=== PATIENT | male | born 1955 | race African-American/Black ===

== ENCOUNTER 2017-07-12 11:15 | Day surgery (SDC) | payer OTHER ==
[2017-07-06 09:18] VITALS: BMI 30.6
[2017-07-12] MEDS ORDERED: PROPOFOL 20 ML ONE (12:48)
[2017-07-12] MEDS ORDERED: MIDAZOLAM HCL 2 MG/2 ML SINGLE DOSE VIAL ONE (13:12)
[2017-07-12] MEDS ORDERED: DEXAMETHASONE SOD PHOSPHATE/PF 10 MG/ML SDV ONE (13:13)
[2017-07-12] MEDS ORDERED: ROPIVACAINE HCL 0.5% 30ML VIAL ONE (13:13)
[2017-07-12] MEDS ORDERED: ceFAZolin SODIUM 1 GM VIAL ONE (13:49)
[2017-07-12] MEDS ORDERED: ePHEDrine SULFATE 50 MG/1 ML AMPULE ONE (13:58)
[2017-07-12] MEDS ORDERED: DEXAMETHASONE SOD PHOSPHATE 4 MG/1 ML VIAL ONE (14:30)
[2017-07-12] MEDS ORDERED: ONDANSETRON 4 MG/2 ML VIAL ONE (14:30)
[2017-07-12 15:11] VITALS: TEMP 97.5
[2017-07-12 16:00] VITALS: BP 127/81; PULSE 66
--- NOTE | 2017-07-20 10:30 | OP ---
DATE OF OPERATION: 07/12/2017 PREOPERATIVE DIAGNOSES: Left shoulder internal derangement. POSTOPERATIVE DIAGNOSES: 1. Left glenoid chondromalacia. 2. Left shoulder subacromial impingement syndrome. 3. Left shoulder diffuse anterior-superior labral tearing. 4. Left shoulder partial-thickness supraspinatus/rotator cuff tendon tear. OPERATIVE PROCEDURES: 1. Left shoulder operative arthroscopy with extensive debridement of glenohumeral joint and rotator cuff and labrum. 2. Left shoulder arthroscopic subacromial decompression. SURGEON: Vincent Crowder MD MAIL SORTING SUPERVISOR: JENNIFER Rivas ANESTHESIA: Regional. COMPLICATIONS: None. ESTIMATED BLOOD LOSS: Minimal. INDICATIONS FOR PROCEDURE: The patient is a 61-year-old male with the above findings, indicated for operative treatment. The risks, benefits, and alternatives were discussed with the patient at length, and proper informed consent was obtained. DESCRIPTION OF PROCEDURE: After proper identification of the patient and the correct operative site, patient was brought to the operating room, placed supine on the operating table, all prominences were well padded. Regional anesthesia was given. She was then placed into the beach-chair position with all points of contact well padded. An in-line cervical position was maintained throughout the procedure. Left upper extremity was then prepped and draped in the usual sterile fashion. Standard arthroscopy was performed through the posterior portal. Accessory portals were made laterally and anteriorly. Glenohumeral joint was first observed and found to have significant synovitis, which was debrided mechanically. Significant fraying and tearing of the labrum was noted anteriorly, superiorly, and posteriorly. This was treated with mechanical shaver. There was no detachment from the glenoid that that needed to be repaired. Biceps tendon was intact. Significant chondromalacia was noted in the anterior inferior one-half of the glenoid, which was near full-thickness, and also moderate chondromalacia was noted in the posterior elements. Any loose cartilage was debrided with mechanical shaver. Subscapularis was found to be intact, although frayed, and this was also debrided. Infraspinatus was intact with mild tendinosis. Supraspinatus had about a 40% tear on the articular surface, and this was debrided with mechanical shaver. Arthroscope was then introduced into the subacromial space, where a moderate to severe bursitis was noted, and this was debrided with the mechanical shaver. A large anterior-inferior subacromial spur was noted, and an anterior-inferior acromioplasty was performed. There was no bursal-sided tear of the rotator cuff on this side, and therefore, it was determined that no repair would be performed. Wounds were irrigated with copious amounts of normal saline and repaired with 5-0 nylon sutures. Sterile dressings were applied. The patient was reversed from anesthesia and brought to the recovery room in stable condition. He tolerated the procedure well Darwin Vázquez, the assistant professor sculpture, was integral throughout the procedure. Procedure could not have been performed without a skilled operative assistant professor sculpture. Halina [id number]
== END 2017-07-12 15:45 | disposition home or self-care (01) ==
LOC: FASU 11:15
PROVIDERS: ATTEND Orthopaedic Surgery Hand Surgery
PROC: 0RNK4ZZ Release Left Shoulder Joint, Percutaneous Endoscopic Approach (ICD-10-PCS; 2017-07-12)
PROC: 0RBK4ZZ Excision of Left Shoulder Joint, Percutaneous Endoscopic Approach (ICD-10-PCS; 2017-07-12)
PROC: 0LB24ZZ Excision of Left Shoulder Tendon, Percutaneous Endoscopic Approach (ICD-10-PCS; principal; 2017-07-12 14:05)
DX: M75.112 Incomplete rotator cuff tear or rupture of left shoulder, not specified as traumatic (principal); M94.212 Chondromalacia, left shoulder; M75.42 Impingement syndrome of left shoulder; M24.112 Other articular cartilage disorders, left shoulder
CPT/HCPCS: 94760